=== PATIENT | male | born 1995 | race Caucasian/White ===

== ENCOUNTER 2016-07-04 19:06 | Emergency (ER) | payer SELFPAY ==
[~2016-07-04] VITALS: Ht 167.6 cm; Wt 108.9 kg
[2016-07-04] MEDS ORDERED: IBU800 MG PO (20:56)
== END 2016-07-04 21:02 | disposition home or self-care (01) ==
LOC: ED 19:06
DX: M25.561 Pain in right knee (principal); F17.200 Nicotine dependence, unspecified, uncomplicated